=== PATIENT | female | born 1960 | race Caucasian/White ===

== ENCOUNTER 2017-08-19 18:55 | Emergency (ER) | payer BC ==
[~2017-08-19] VITALS: Ht 170.2 cm; Wt 81.8 kg
[2017-08-19 19:55] LABS: HEMATOCRIT 43.2 % (36.0-46.0); HEMOGLOBIN 15.5 G/DL (11.9-15.5); MCH 29.6 PG (29.0-34.0); MCHC 35.9 G/DL (30.0-36.0); MCV 82.4 FL (83-99); PLATELET COUNT 158 K/uL (156-360); RBC DIS.WIDTH-CV 11.8 % (11.8-14.6); RBC DIS.WIDTH-SD 35.5 % (39-53); RED BLOOD COUNT 5.24 M/uL (3.80-5.20); WHITE BLOOD COUNT 7.3 K/uL (4.1-10.2)
[2017-08-19 20:09] LABS: CHLORIDE 105 mEq/L (99-109); POTASSIUM 4.2 mEq/L (3.7-5.4); SODIUM 141 mEq/L (136-147)
[2017-08-19 20:11] LABS: GLUCOSE 132 mg/dL (70-99)
[2017-08-19 20:14] LABS: CREATININE 0.9 mg/dL (0.6-1.3); GFR ESTIMATE (CALCULATED) > 59 mL/min/
[2017-08-19 20:15] LABS: UREA NITROGEN (BUN) 15 mg/dL (9-23)
[2017-08-19 20:19] LABS: TROP-I INTERPRETATION NEGATIVE; TROPONIN-I < 0.01 ng/mL (0.0-0.30)
[2017-08-19 23:26] LABS: QUANTITATIVE HCG < 4.0 MIU/ML
[2017-08-19 23:36] LABS: D-DIMER ELISA < 150.00 ng/mLDDU (<230)
[2017-08-19 23:51] LABS: TROP-I INTERPRETATION NEGATIVE; TROPONIN-I < 0.01 ng/mL (0.0-0.30)
[2017-08-20] MEDS ORDERED: ATARAX,VISTARIL25 MG PO (00:15)
[2017-08-20 00:58] VITALS: BP 115/68
== END 2017-08-20 00:58 | disposition home or self-care (01) ==
LOC: EXP 18:55 → EME 18:55 → EXP 08-20 00:58
PROVIDERS: Physician Assistant
DX: R07.89 Other chest pain (principal); E11.9 Type 2 diabetes mellitus without complications; Z79.4 Long term (current) use of insulin; E78.5 Hyperlipidemia, unspecified; I10 Essential (primary) hypertension
CPT/HCPCS: 71046; 80048; 84484; 84702; 85027; 85379; 93005; 99281; 99285; Q0177

== ENCOUNTER 2017-11-26 17:40 | Emergency (ER) | payer BC ==
[~2017-11-26] VITALS: Ht 170.2 cm; Wt 84.5 kg
[~2017-11-26 17:40] MED LIST: ATARAX,VISTARIL25 MG PO
[2017-11-26 18:36] LABS: HEMATOCRIT 41.4 % (36.0-46.0); HEMOGLOBIN 14.4 G/DL (11.9-15.5); MCH 29.2 PG (29.0-34.0); MCHC 34.8 G/DL (30.0-36.0); PLATELET COUNT 150 K/uL (156-360); RBC DIS.WIDTH-CV 12.1 % (11.8-14.6); RBC DIS.WIDTH-SD 36.8 % (39-53); RED BLOOD COUNT 4.93 M/uL (3.80-5.20); WHITE BLOOD COUNT 9.8 K/uL (4.1-10.2)
[2017-11-26 18:45] LABS: CHLORIDE 105 mEq/L (99-109); POTASSIUM 4.2 mEq/L (3.7-5.4); SODIUM 140 mEq/L (136-147)
[2017-11-26 18:47] LABS: GLUCOSE 129 mg/dL (70-99)
[2017-11-26 18:50] LABS: GFR ESTIMATE (CALCULATED) > 59 mL/min/
[2017-11-26 18:51] LABS: UREA NITROGEN (BUN) 19 mg/dL (9-23)
[2017-11-26 18:57] LABS: TROP-I INTERPRETATION NEGATIVE; TROPONIN-I < 0.01 ng/mL (0.0-0.30)
[2017-11-26] MEDS ORDERED: ATARAX,VISTARIL25 MG PO (19:15)
[2017-11-26 19:30] VITALS: BP 146/82
== END 2017-11-26 19:30 | disposition home or self-care (01) ==
LOC: EME 17:40
PROVIDERS: Emergency Medicine
DX: F41.9 Anxiety disorder, unspecified (principal); R07.9 Chest pain, unspecified; I10 Essential (primary) hypertension; E11.9 Type 2 diabetes mellitus without complications; E78.5 Hyperlipidemia, unspecified; Z79.4 Long term (current) use of insulin
CPT/HCPCS: 80048; 82948; 84484; 85027; 93005; 99281; 99285; Q0177